=== PATIENT | male | born 2000 | race Caucasian/White ===

== ENCOUNTER 2021-09-17 11:47 | Day surgery (SDC) | payer OTHER ==
[~2021-09-17] VITALS: Ht 188 cm; Wt 97.5 kg
[2021-09-17 12:14] VITALS: BP 103/68; PULSE 70; TEMP 98.8
--- NOTE | 2021-09-17 14:46 | NUR ---
Patient puts his call light on and requests to use the restroom. Staff assists him to the restroom. He voids and returns to his room.
--- NOTE | 2021-09-17 16:25 | NUR ---
Report recieved from KENNEL AIDEAdilia.
[2021-09-17 16:30] VITALS: BP 113/69; PULSE 65; TEMP 98.3
--- NOTE | 2021-09-17 16:30 | NUR ---
Patient arrived on cart from PACU, escorted by Adilia DICKINSON. Patient is alert and oriented x3, states feeling the need to use the BR. Vitals obtained and are WNL. Patient was assisted ambulating to BR, he has a steady gait. Julien catheter is in place and draining clear-yellow urine. Patient asked for crackers and ice water. Vitals obtained. Will continue to monitor. Call chu is within reach. Side rails x2.
[2021-09-17 16:45] VITALS: BP 115/51; PULSE 55
--- NOTE | 2021-09-17 16:45 | NUR ---
Patient is tolerating crackers and water well. States desire to be discharged to have dinner with his . Criteria has been met. IV discontinued at this time. Catheter tip intact. No redness or swelling noted. Vitals obtained. Call chu is within reach. side rails x2. Will continue to monitor and gather discharge instructions.
[2021-09-17 17:00] VITALS: BP 120/80; PULSE 66
[2021-09-17 17:09] VITALS: BP 113/69; PULSE 68
--- NOTE | 2021-09-17 17:30 | NUR ---
Discharge instructions reviewed with Patient and his . Both verbalized understanding. Patient was given an extra gonzalez catheter kit, and a leg bag that the RN assisted with placement. Other supplies includes 4x4's and alcohol pads along with discharge instructions and patient educational materials.
--- NOTE | 2021-09-17 17:50 | NUR ---
Patient escorted out via wheelchair to the ED entrence with , who is driving. Patient transferred into her care at this time. Patient has discharge instructions, personal belonings and extra supplies.
== END 2021-09-17 17:50 | disposition home or self-care (01) ==
LOC: SDCO 11:47
DX: N35.812 Other bulbous urethral stricture, male (principal); N41.1 Chronic prostatitis; F17.290 Nicotine dependence, other tobacco product, uncomplicated
CPT/HCPCS: C1769; J0690; J1100; J2405; J2704; J3010; J7120